=== PATIENT | male | born 1955 | race Caucasian/White ===

== ENCOUNTER 2023-02-28 11:47 | Day surgery (SDC) | payer OTHER ==
[~2023-02-28] VITALS: Ht 177.8 cm; Wt 86.4 kg
[~2023-02-28 11:47] MED LIST: ATOR80 PO; CLOP75 PO; GLIP10 PO; METF500 PO; PIOG30 PO; TOPROL XL200 MG PO; ZESTORETIC 20-251 EA PO
[2023-02-28 13:51] VITALS: BP 149/95
--- NOTE | 2023-02-28 13:56 | NUR ---
02/28/23 1356 Tyron Osullivan IV REMOVED INTACT. SITE WNL.
== END 2023-02-28 13:46 | disposition home or self-care (01) ==
LOC: ORSCSDS 11:47
PROVIDERS: Ophthalmology
PROC: 08DJ3ZZ Extraction of Right Lens, Percutaneous Approach (ICD-10-PCS; principal; 2023-02-28 13:00)
DX: E11.36 Type 2 diabetes mellitus with diabetic cataract (principal); I25.10 Atherosclerotic heart disease of native coronary artery without angina pectoris; I10 Essential (primary) hypertension; E11.9 Type 2 diabetes mellitus without complications
CPT/HCPCS: 82947; J2001; J2250; J3010; J3301; J7040; V2632